=== PATIENT | female | born 1995 | race Caucasian/White ===

== ENCOUNTER 2017-08-12 13:44 | Emergency (ER) | payer OTHER ==
[2017-08-12 14:16] VITALS: RESP 16; TEMP 98
[2017-08-12] MEDS ORDERED: ORPHENADRINE 30 MG/ML 2 ML VIAL IM STA (14:20)
[2017-08-12] MEDS ORDERED: KETOROLAC 30 MG/ML 1 ML VIAL IM STA (14:20)
--- NOTE | 2017-08-12 14:24 | ED ---
Fall HPI - General Chief Complaint: Fall Stated Complaint: Fall Time Seen by Provider: 08/12/17 14:08 Source: patient Mode of arrival: ambulatory - History of Present Illness Initial Comments: 21-year-old female patient presented to emergency department today for complaints of lower back pain. Patient states that around 7:30 this morning she slipped on her stairs, fell onto her buttocks, and slid down approximately 20 steps. She states that she has chronic lower back pain, and this fall has made her pain worse. States that she is having radiation of the pain down her left leg with some mild tingling. States that she does have these symptoms occasionally however it is usually more in her right leg. She states she did go to work however the pain became too intense and she had to leave early. She denies any loss of bowel or bladder control with this. She denies any saddle anesthesia. She is able to ambulate without difficulty. She states that changing positions from sitting to standing, or lying to sitting causes the most pain. She denies hitting her head or losing consciousness. Patient denies any headache, neck pain, chest pain, shortness of breath, dizziness, weakness, abdominal pain, nausea, vomiting, or difficulties with bowel movements or urination. She states her last period was 07/10/2017. She denies any chance of . - Related Data Home Medications Medication Instructions Recorded Confirmed Pnv,Calcium 72/Iron/Folic Acid 1 tab PO DAILY 02/29/16 10/07/16 [ Plus Tablet] Previous Rx's Medication Instructions Recorded Acetaminophen-Codeine 300-30mg 1 - 2 each PO Q4HR PRN #30 tab 10/10/16 [Tylenol w/codeine #3] Ibuprofen [Motrin] 600 mg PO Q6HR PRN #40 tab 10/10/16 Cyclobenzaprine [Flexeril] 10 mg PO TID #15 tab 08/12/17 Ibuprofen 800 mg PO TID PRN #30 tablet 08/12/17 Allergies Allergy/AdvReac Type Severity Reaction Status Date / Time No Known Allergies Allergy Verified 08/12/17 14:15 Review of Systems ROS Statement: Those systems with pertinent positive or pertinent negative responses have been documented in the HPI. ROS Other: All systems not noted in ROS Statement are negative. Past Medical History Past Medical History: No Reported History History of Any Multi-Drug Resistant Organisms: None Reported Past Surgical History: No Surgical Hx Reported Past Anesthesia/Blood Transfusion Reactions: No Reported Reaction Past Psychological History: No Psychological Hx Reported Smoking Status: Never smoker Past Alcohol Use History: None Reported Past Drug Use History: None Reported - Past Family History Father Family Medical History: No Reported History General Exam Limitations: no limitations General appearance: alert, in no apparent distress, other (This is a well- developed, well-nourished adult female patient in no acute distress. Vital signs upon presentation temperature 98.0F, pulse 80, respirations 16, blood pressure 141/70, pulse ox 98% on room air.) Head exam: Present: atraumatic, normocephalic, normal inspection Eye exam: Present: normal appearance, PERRL, EOMI. Absent: scleral icterus, conjunctival injection, periorbital swelling ENT exam: Present: normal exam, normal oropharynx, mucous membranes moist Neck exam: Present: normal inspection, full ROM, other (Nontender, no step-off, no deformity to firm midline palpation of the posterior cervical spine. Full range of motion without pain or limitation.). Absent: tenderness, meningismus, lymphadenopathy Respiratory exam: Present: normal lung sounds bilaterally. Absent: respiratory distress, wheezes, rales, rhonchi, stridor Cardiovascular Exam: Present: regular rate, normal rhythm, normal heart sounds. Absent: systolic murmur, diastolic murmur, rubs, gallop, clicks GI/Abdominal exam: Present: soft, normal bowel sounds. Absent: distended, tenderness, guarding, rebound, rigid Extremities exam: Present: normal inspection, full ROM, normal capillary refill , other (Skin to the bilateral lower extremities pink, warm, and dry. Cap refills less than 3 seconds. Pedal and posttibial pulses are 2+ and equal bilaterally.). Absent: tenderness, pedal edema, joint swelling, calf tenderness Back exam: Present: normal inspection, vertebral tenderness (Tenderness over the thoracic vertebrae and the lumbar vertebrae. No step-off or deformity noted to for midline palpation of the thoracic and lumbar vertebra.). Absent: CVA tenderness (R), CVA tenderness (L) Neurological exam: Present: alert, oriented X3, CN II-XII intact, other ( Strength in all 4 extremities is 5/5. Negative straight leg test bilaterally.) Psychiatric exam: Present: normal affect, normal mood Skin exam: Present: warm, dry, intact, normal color. Absent: rash Course Vital Signs 08/12/17 08/12/17 14:11 15:29 Temperature 98.0 F 98.0 F Pulse Rate 80 83 Respiratory 16 16 Rate Blood Pressure 141/70 134/79 O2 Sat by Pulse 98 100 Oximetry Medical Decision Making - Medical Decision Making 21-year-old female patient presented for evaluation of lower back pain. Patient does have a history of chronic low back pain but states it worsened after a fall down the stairs today. X-rays of the thoracic and lumbar spine show no acute fracture nor dislocation. Patient is neurologically intact. Patient also vascular status is intact. Patient will be given pain medication and muscle relaxers. She is instructed to follow-up with the primary care physician if her symptoms persist. She is instructed to return here immediately for any new, worsening, or concerning symptoms. She verbalizes understanding and agrees with this plan. - Radiology Data Radiology results: report reviewed, image reviewed 3 views of the thoracic spine were obtained and showed previous spinal curvature of the patient may be rotated. Thoracic vertebral body show preserved height, alignment, and bone mineralization. Disc spaces are maintained. Impression by Dr. Babcock shows no acute fracture or subluxation. 3 views of the lumbar spine are obtained and shows 5 lumbar type vertebral bodies identified. The lumbar spine show satisfactory alignment without evidence of acute fracture or dislocation. Vertebral body height in disc space heights are within normal limits. The oblique images appear within normal limits. The overlying soft tissue appears unremarkable. The visualized bowel gas pattern is unremarkable. Impression by Dr. Swartz shows no acute fracture or malalignment in the lumbar spine. Disposition Clinical Impression: Fall with injury, Low back pain Disposition: HOME SELF-CARE Condition: Good Instructions: Acute Low Back Pain (ED) Additional Instructions: Apply warm moist heat to the area. 20 minutes at a time at least 4 times daily. Take medications as directed. Follow up with her primary care physician for recheck in 1-2 days. Return here immediately for any new, worsening, or concerning symptoms. Prescriptions: Cyclobenzaprine [Flexeril] 10 mg PO TID #15 tab Ibuprofen 800 mg PO TID PRN #30 tablet PRN Reason: Pain Referrals: Tyree Samuel DO [Primary Care Provider] - 1-2 days Time of Disposition: 15:18
--- NOTE | 2017-08-12 15:09 | XR ---
EXAMINATION TYPE: XR lumbosacral spine min 4V DATE OF EXAM: 08/12/2017 CLINICAL HISTORY: Back pain after fall TECHNIQUE: Frontal, lateral, and oblique images of the lumbar spine are obtained. COMPARISON: None FINDINGS: There are 5 lumbar type vertebral bodies identified. The lumbar spine shows satisfactory alignment without evidence of acute fracture or dislocation. Vertebral body heights and disk space he ights are within normal limits. The oblique images appear within normal limits. The overlying soft tissue appears unremarkable. The visualized bowel gas pattern is unremarkable. IMPRESSION: No acute fracture or malalignment is seen in the lumbar spine.
--- NOTE | 2017-08-12 15:09 | XR ---
Thoracic spine HISTORY: Trauma and pain 3 views of the thoracic spine Lumbar spine same date Previous spinal curvature of the patient may be rotated. Thoracic vertebral bodies show preserved hei ght, alignment, and bone mineralization. Disc spaces are maintained. IMPRESSION: No acute fracture or subluxation
[2017-08-12 15:32] VITALS: BP 134/79; PULSE 83
== END 2017-08-12 15:35 | disposition home or self-care (01) ==
LOC: EC 13:44
DX: S39.92XA Unspecified injury of lower back, initial encounter (principal); M54.5 Low back pain; G89.29 Other chronic pain; Z79.899 Other long term (current) drug therapy; W10.9XXA Fall (on) (from) unspecified stairs and steps, initial encounter
CPT/HCPCS: 99283 ×2; 96372 ×3; 72072; 72110; J2360; J1885

== ENCOUNTER 2018-08-06 02:36 | Emergency (ER) | payer OTHER ==
[2018-08-06] MEDS ORDERED: LIDOCAINE 5% PATCH TOPICAL STA (03:37)
[2018-08-06] MEDS ORDERED: ORPHENADRINE 30 MG/ML 2 ML VIAL IM STA (03:37)
[2018-08-06] MEDS ORDERED: MORPHINE SULFATE 4 MG/ML SYRINGE IM STA ×2 (03:37→04:48)
[2018-08-06] MEDS ORDERED: KETOROLAC 30 MG/ML 1 ML VIAL IM STA (03:37)
--- NOTE | 2018-08-06 04:47 | ED ---
Back Pain HPI - General Chief Complaint: Back Pain/Injury Stated Complaint: Back Pain Time Seen by Provider: 08/06/18 03:24 Source: patient Limitations: no limitations - History of Present Illness Initial Comments: 22-year-old female patient presents to the emergency department today for complaints of right lower back pain. Patient states the pain radiates down the right posterior leg to about knee level. Patient states that this started when she woke this morning. Patient states the pain is progressively getting worse throughout the day. Patient states that she is pain free at rest however when she moves the pain becomes severe. Patient states that she is having some tingling to the right leg. She denies any saddle anesthesia or loss of bowel or bladder control. Patient states that she has had chronic low back pain from an old basketball injury. Patient states that she has had sciatic type pain in the past. She denies any fever, chills, hematuria, dysuria, urinary frequency, urinary urgency, abnormal vaginal bleeding or discharge. Denies any abdominal pain. Patient denies any recent rash, shortness breath, chest pain, nausea, vomiting, diarrhea, constipation, dizziness, weakness, headache, visual changes , or any other complaints. - Related Data Home Medications Medication Instructions Recorded Confirmed Pnv,Calcium 72/Iron/Folic Acid 1 tab PO DAILY 02/29/16 10/07/16 [ Plus Tablet] Previous Rx's Medication Instructions Recorded Acetaminophen-Codeine 300-30mg 1 - 2 each PO Q4HR PRN #30 tab 10/10/16 [Tylenol w/codeine #3] Ibuprofen [Motrin] 600 mg PO Q6HR PRN #40 tab 10/10/16 Cyclobenzaprine [Flexeril] 10 mg PO TID #15 tab 08/12/17 Ibuprofen 800 mg PO TID PRN #30 tablet 08/12/17 Ondansetron [Zofran ODT] 4 mg PO Q8HR PRN #10 tab 12/07/17 Cyclobenzaprine [Flexeril] 10 mg PO TID #15 tab 08/06/18 Ibuprofen [Motrin] 600 mg PO Q8HR PRN #30 tab 08/06/18 Allergies Allergy/AdvReac Type Severity Reaction Status Date / Time No Known Allergies Allergy Verified 08/06/18 02:47 Review of Systems ROS Statement: Those systems with pertinent positive or pertinent negative responses have been documented in the HPI. ROS Other: All systems not noted in ROS Statement are negative. Past Medical History Past Medical History: No Reported History History of Any Multi-Drug Resistant Organisms: None Reported Past Surgical History: Section Past Anesthesia/Blood Transfusion Reactions: No Reported Reaction Past Psychological History: No Psychological Hx Reported Smoking Status: Never smoker Past Alcohol Use History: Occasional Past Drug Use History: None Reported - Past Family History Father Family Medical History: No Reported History General Exam Limitations: no limitations General appearance: alert, in no apparent distress, other (Well-developed, well- nourished adult female patient in mild distress related to pain. Vital signs upon presentation are temperature 99.5F, pulse 122, respirations 18, blood pressure 131/84, pulse ox 99% on room air.) Eye exam: Present: normal appearance, PERRL, EOMI. Absent: scleral icterus, conjunctival injection, periorbital swelling ENT exam: Present: normal exam, normal oropharynx, mucous membranes moist Respiratory exam: Present: normal lung sounds bilaterally. Absent: respiratory distress, wheezes, rales, rhonchi, stridor Cardiovascular Exam: Present: regular rate, normal rhythm, normal heart sounds. Absent: systolic murmur, diastolic murmur, rubs, gallop, clicks GI/Abdominal exam: Present: soft, normal bowel sounds. Absent: distended, tenderness, guarding, rebound, rigid Extremities exam: Present: normal inspection, full ROM, normal capillary refill , other (Skin to the lower extremities is pink, warm, and dry. Cap refills less than 3 seconds. Pedal and posttibial pulses are 2+ and equal bilaterally.) . Absent: tenderness, pedal edema, joint swelling, calf tenderness Back exam: Present: normal inspection, tenderness (Right lower back). Absent: vertebral tenderness Neurological exam: Present: alert, oriented X3, CN II-XII intact, other ( Strength in lower extremities is 5/5.) Psychiatric exam: Present: normal affect, normal mood Skin exam: Present: warm, dry, intact, normal color. Absent: rash Course Vital Signs 08/06/18 02:43 Temperature 99.5 F Pulse Rate 122 H Respiratory 18 Rate Blood Pressure 131/84 O2 Sat by Pulse 99 Oximetry Medical Decision Making - Medical Decision Making 22-year-old female patient presents emergency department today for evaluation of right lower back pain that radiates into the right leg. Physical examination is unremarkable. Patient is neurologically intact. Legs are neurovascularly intact. Patient was given medication here in the emergency department. She did have improvement of symptoms. She'll be discharged home with anti-inflammatory pain medication as well as muscle relaxer. She is instructed to follow-up with her primary care physician for recheck in 1-2 days. Return parameters were discussed in detail. She verbalizes understanding and agrees with this plan. Disposition Clinical Impression: Sciatica Disposition: HOME SELF-CARE Condition: Good Instructions: Sciatica (ED) Additional Instructions: Take medications as directed. Apply warm moist heat to the low back. Perform gentle range of motion exercises. Follow-up with your primary care physician for recheck in 1-2 days. Return here immediately for any new, worsening, or concerning symptoms. Prescriptions: Cyclobenzaprine [Flexeril] 10 mg PO TID #15 tab Ibuprofen [Motrin] 600 mg PO Q8HR PRN #30 tab PRN Reason: Pain Is patient prescribed a controlled substance at d/c from ED?: No Referrals: Tyree Samuel DO [Primary Care Provider] - 1-2 days Time of Disposition: 04:54
[2018-08-06] MEDS ORDERED: methylPREDNISolone SOD SUCCI 125 MG/2 ML VIAL IM ONE (04:48)
[2018-08-06] MEDS ORDERED: ACET/COD 300 MG/30 MG STARTER PACK 6 TAB BTL PO STA (04:54)
[2018-08-06] MEDS ORDERED: CYCLOBENZAPRINE 10MG STARTER 3 TAB BTL PO STA (04:54)
[2018-08-06 05:52] VITALS: BP 143/67; PULSE 88; RESP 19; TEMP 97.9
== END 2018-08-06 05:52 | disposition home or self-care (01) ==
LOC: EC 02:36
DX: M54.41 Lumbago with sciatica, right side (principal)
CPT/HCPCS: 96372; 99283

== ENCOUNTER 2020-04-06 11:16 | Emergency (ER) | payer OTHER ==
[2020-04-06 11:21] VITALS: RESP 16
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
[2020-04-06 13:13] VITALS: BP 130/79; PULSE 76; TEMP 98
== END 2020-04-06 13:13 | disposition home or self-care (01) ==
LOC: EC 11:16
DX: J70.5 Respiratory conditions due to smoke inhalation (principal)
CPT/HCPCS: 71046; 99284